=== PATIENT | female | born 1985 | race African-American/Black ===

== ENCOUNTER 2021-10-22 06:36 | Inpatient (IN) | payer MEDICAID ==
[~2021-10-22] VITALS: Ht 162.6 cm; Wt 75.3 kg
[2021-10-22] MEDS ORDERED: PNV1CAPS42 PO (07:00)
[2021-10-22] MEDS ORDERED: NALOXONE HCL 0.4 MG/ML 1ML VIAL IM PRN (07:15)
[2021-10-22] MEDS ORDERED: MISOPROSTOL 100MCG TABLET VG SCH (07:15)
[2021-10-22] MEDS ORDERED: OXYTOCIN 30 UNITS/500ML NS PMX 500 ML IV SCH ×2 (07:15→14:45)
[2021-10-22] MEDS: LACTATED RINGERS 1,000 ML IV SCH ×2 (08:00→22:23)
[2021-10-22] MEDS ORDERED: CITRIC ACID/SODIUM CITRATE SOLN 30ML UDC PO NR (08:00)
[2021-10-22 08:14] LABS: BASOPHILS % 0.5 % (0.0-2.0); HEMOGLOBIN. 10.7 g/dL (12.0-16.0); LYMPHOCYTES % 39.1 % (20.0-50.0); MEAN CORPUSCULAR HEMOGLOBIN 30.6 pg (28.0-32.0); MEAN CORPUSCULAR VOLUME 88.4 fL (81.0-99.0); MONOCYTES % 7.3 % (2.0-8.0); NEUTROPHILS % 52.1 % (40.0-76.0); PLATELET 262 x1000/uL (130-400); RED CELL DISTRIBUTION WIDTH 13.5 % (11.6-14.6)
[2021-10-22 08:19] LABS: CHLORIDE 111 mEq/L (98-107)
[2021-10-22] MEDS ORDERED: CEFAZOLIN SODIUM 1000MG/VIAL ONE (08:28)
[2021-10-22] MEDS ORDERED: OXYTOCIN 10 UNITS/ML 1ML ONE (08:28)
[2021-10-22 08:29] LABS: PARTIAL THROMBOPLASTIN TIME 24.8 sec (23.4-31.0); PROTHROMBIN TIME 10.5 sec (9.6-11.0)
[2021-10-22] MEDS ORDERED: PHENYLEPHRINE HCL 10 MG/ML 1ML (IV VIAL) IV ONE (08:29)
[2021-10-22] MEDS ORDERED: EPHEDRINE SULFATE 50MG/ML VIAL ONE (08:29)
[2021-10-22] MEDS ORDERED: ONDANSETRON HCL 4MG/2ML INJ ONE (08:29)
[2021-10-22 08:33] LABS: CLARITY URINE CLEAR (CLEAR); COLOR URINE YELLOW (YELLOW); KETONES URINE NEGATIVE (NEGATIVE); LEUKOCYTE ESTERASE URINE 3+ (NEGATIVE); NITRITE URINE NEGATIVE (NEGATIVE); OCCULT BLOOD URINE NEGATIVE (NEGATIVE); PH URINE 6.5 (4.5-8.0); PROTEIN URINE NEGATIVE (NEGATIVE); SPECIFIC GRAVITY URINE 1.006 (1.005-1.030)
[2021-10-22] MEDS ORDERED: DIPHENHYDRAMINE 50MG/ML VIAL ONE (08:33)
[2021-10-22 08:47] LABS: HEPATITIS B SURFACE ANTIGEN NEGATIVE
[2021-10-22 09:13] LABS: *AMPHETAMINES SCREEN URINE NEGATIVE (NEGATIVE); *BARBITURATES SCREEN URINE NEGATIVE (NEGATIVE); *BENZODIAZEPINES SCREEN URINE NEGATIVE (NEGATIVE); *COCAINE SCREEN URINE NEGATIVE (NEGATIVE); CANNABINOID URINE SCREEN NEGATIVE (NEGATIVE); METHADONE URINE SCREEN NEGATIVE (NEGATIVE); OPIATES URINE SCREEN NEGATIVE (NEGATIVE); PHENCYCLIDINE URINE SCREEN NEGATIVE (NEGATIVE)
[2021-10-22] MEDS ORDERED: FENTANYL CITRATE/PF 50MCG/ML 2ML VIAL ONE (13:40)
[2021-10-22] MEDS ORDERED: MORPHINE SULFATE/PF 1MG/ML 10ML AMP ONE (13:41)
[2021-10-22] MEDS ORDERED: MIDAZOLAM HCL 2 MG/2 ML VIAL ONE (13:46)
[2021-10-22] MEDS ORDERED: KETOROLAC 60MG/2ML VIAL IM ONE (14:34)
[2021-10-22] MEDS ORDERED: BISACODYL 10MG SUPP PR PRN (14:45)
[2021-10-22] MEDS ORDERED: DIPHENHYDRAMINE 25MG CAPSULE PO PRN (14:45)
[2021-10-22] MEDS ORDERED: HEMORRHOIDAL SUPP PR PRN (14:45)
[2021-10-22] MEDS ORDERED: RHO(D) IMMUNE GLOBULIN 300 MCG/SYR IM PRN (14:45)
[2021-10-22] MEDS ORDERED: ONDANSETRON HCL 4MG/2ML INJ IV PRN (14:45)
[2021-10-22] MEDS ORDERED: IBUPROFEN 800MG TABLET PO PRN (14:45)
[2021-10-22] MEDS ORDERED: IBUPROFEN 400MG TABLET PO PRN (14:45)
[2021-10-22] MEDS ORDERED: LANOLIN OINT 7GM TUBE TOP PRN (14:45)
[2021-10-22] MEDS ORDERED: ACETAMINOPHEN WITH CODEINE 300/30MG TABLET PO PRN (14:45)
[2021-10-22] MEDS ORDERED: NALOXONE HCL 0.4 MG/ML 1ML VIAL IV PRN (15:00)
[2021-10-22] MEDS ORDERED: KETOROLAC 30MG/ML VIAL IV SCH (15:00)
[2021-10-22] MEDS ORDERED: BUTORPHANOL TARTRATE 2 MG/ML VIAL IV PRN (15:00)
[2021-10-22] MEDS ORDERED: DIPHENHYDRAMINE 50MG/ML VIAL IV PRN (15:00)
[2021-10-22] MEDS: DEXTROSE 50% WATER 50ML SYRINGE IV PRN ×2 (18:45→18:49)
[2021-10-22 20:00] VITALS: BP 122/80
[2021-10-22 22:30] VITALS: BP 121/77
[2021-10-23 05:30] VITALS: BP 115/58
[2021-10-23] MEDS: LACTATED RINGERS 1,000 ML IV SCH (06:18)
[2021-10-23 07:30] LABS: BASOPHILS % 0.2 % (0.0-2.0); EOSINOPHILS % 1.3 % (0.0-5.0); HEMATOCRIT. 29.1 % (36.0-48.0); HEMOGLOBIN. 9.9 g/dL (12.0-16.0); MEAN CORPUSCULAR HEMOGLOBIN 30.2 pg (28.0-32.0); MEAN CORPUSCULAR VOLUME 88.8 fL (81.0-99.0); MEAN PLATELET VOLUME 9.6 fl (7.4-10.4); MONOCYTES % 6.1 % (2.0-8.0); NEUTROPHILS % 69.4 % (40.0-76.0); PLATELET 229 x1000/uL (130-400); RED BLOOD CELL COUNT 3.28 mill/uL (4.2-5.4); RED CELL DISTRIBUTION WIDTH 13.6 % (11.6-14.6)
[2021-10-23 08:00] VITALS: BP 122/83
[2021-10-23] MEDS: PRENATAL VIT/FE FUMARATE/FA TABLET PO SCH (09:03)
[2021-10-23] MEDS: FERROUS SULFATE 325MG TABLET PO SCH ×2 (09:03→17:30)
[2021-10-23] MEDS: MAGNESIUM/ALUMINUM HYDROXIDE/SIMETHICONE 30ML UDC PO SCH ×2 (09:04→21:00)
[2021-10-23] MEDS: SIMETHICONE 80MG TABLET CHEW PO SCH ×2 (09:05→21:00)
[2021-10-23 16:00] VITALS: BP 104/70
[2021-10-23] MEDS: INSULIN LISPRO 100 UNITS/ML SUBCUT SCH ×2 (17:00→21:00)
[2021-10-23 20:00] VITALS: BP 128/70
[2021-10-23] MEDS: BLOOD SUGAR DIAGNOSTIC STRIP TEST SCH (21:15)
[2021-10-23] MEDS: DOCUSATE SODIUM 100MG CAPSULE PO SCH (22:53)
[2021-10-24 04:01] VITALS: BP 116/70
[2021-10-24] MEDS: INSULIN LISPRO 100 UNITS/ML SUBCUT SCH ×2 (06:23→06:34)
[2021-10-24] MEDS: BLOOD SUGAR DIAGNOSTIC STRIP TEST SCH ×2 (06:36→20:24)
[2021-10-24] MEDS: FERROUS SULFATE 325MG TABLET PO SCH ×2 (07:30→09:19)
[2021-10-24 09:00] VITALS: BP 130/72
[2021-10-24] MEDS: SIMETHICONE 80MG TABLET CHEW PO SCH ×4 (09:19→20:24)
[2021-10-24] MEDS: MAGNESIUM/ALUMINUM HYDROXIDE/SIMETHICONE 30ML UDC PO SCH ×4 (09:19→20:23)
[2021-10-24] MEDS: PRENATAL VIT/FE FUMARATE/FA TABLET PO SCH (09:19)
[2021-10-24] MEDS: DOCUSATE SODIUM 100MG CAPSULE PO SCH (20:23)
[2021-10-24 21:20] VITALS: BP 120/70
[2021-10-25 05:26] VITALS: BP 130/70
[2021-10-25] MEDS: BLOOD SUGAR DIAGNOSTIC STRIP TEST SCH (06:34)
[2021-10-25] MEDS: PRENATAL VIT/FE FUMARATE/FA TABLET PO SCH (07:53)
[2021-10-25] MEDS: FERROUS SULFATE 325MG TABLET PO SCH (07:53)
[2021-10-25 07:57] VITALS: BP 142/80
[2021-10-25] MEDS ORDERED: IBUP-2030 PO (08:10)
== END 2021-10-25 13:30 | disposition home or self-care (01) | DRG 540 ==
LOC: OBSVTOIN 06:36 → EDBD 06:36 → 8 EST LDRP 06:36 → 8EST 17:55
PROVIDERS: ADMIT Obstetrics & Gynecology; ATTEND Obstetrics & Gynecology
PROC: 10D00Z1 Extraction of Products of Conception, Low, Open Approach (ICD-10-PCS; principal; 2021-10-22)
DX: O34.211 Maternal care for low transverse scar from previous cesarean delivery (principal); O24.32 Unspecified pre-existing diabetes mellitus in childbirth; E11.9 Type 2 diabetes mellitus without complications; Z20.822 Contact with and (suspected) exposure to COVID-19; Z37.0 Single live birth; Z3A.37 37 weeks gestation of pregnancy
CPT/HCPCS: 36415; 80051; 80053; 80305; 81003; 82962; 83036; 85025; 86592; 86703; 86762; 86850; 86900; 87340; 87426; 88304; 88307; 99281; G0378; J0690; J1200; J1815; J1885; J2250; J2274; J2370; J2405; J3010; J3490; J7120; A4315; J2590

== ENCOUNTER 2023-07-15 10:59 | Emergency (ER) | payer MEDICAID ==
[~2023-07-15] VITALS: Ht 165.1 cm; Wt 66.7 kg
[~2023-07-15 10:59] MED LIST: IBUP-2030 PO; PNV1CAPS42 PO
[2023-07-15 11:20] VITALS: O2SAT 98
[2023-07-15] MEDS ORDERED: TETRACAINE 0.5% OPHTH DROPS 4ML BOTHEYE ONE (12:15)
[2023-07-15] MEDS ORDERED: FLUORESCEIN SODIUM 1MG/STRIP BOTHEYE ONE (12:15)
[2023-07-15] MEDS ORDERED: OCUFLX RIGHTEYE (12:32)
[2023-07-15 12:39] VITALS: BP 140/92; PULSE 86; RESP 18; TEMP 98.4
== END 2023-07-15 14:52 | disposition home or self-care (01) ==
LOC: ER 10:59
DX: H10.31 Unspecified acute conjunctivitis, right eye (principal)
CPT/HCPCS: 81025; 99283